=== PATIENT | male | born 1995 | race Two or more races ===

== ENCOUNTER 2018-07-11 22:23 | Emergency (ER) | END 2018-07-12 00:25 | disposition left against medical advice (07) ==

== ENCOUNTER 2019-07-19 16:07 | Emergency (ER) | payer OTHER ==
[~2019-07-19] VITALS: Ht 165.1 cm; Wt 76.2 kg
[~2019-07-19 16:07] MED LIST: BEN25 PO; TRIA60LO10 TOP
[2019-07-19 16:15] VITALS: BP 139/75; PULSE 74; RESP 16; Ht 165.1 cm; Wt 76.2 kg
== END 2019-07-19 17:06 | disposition home or self-care (01) ==
LOC: E/R 16:07
DX: R21 Rash and other nonspecific skin eruption (principal)
CPT/HCPCS: 99283